=== PATIENT | male | born 1990 | race Caucasian/White ===

== ENCOUNTER 2018-02-01 10:28 | Emergency (ER) | payer OTHER ==
[~2018-02-01] VITALS: Ht 175.3 cm; Wt 83.9 kg
[2018-02-01] MEDS ORDERED: BACTRIM DS TAB1 EAC1 PO (12:20)
[2018-02-01 12:36] VITALS: BP 135/60
== END 2018-02-01 12:37 | disposition home or self-care (01) ==
LOC: M.ERS 10:28
DX: L02.416 Cutaneous abscess of left lower limb (principal)